=== PATIENT | male | born 1985 | race African-American/Black ===

== ENCOUNTER 2017-03-22 16:57 | Emergency (ER) | payer OTHER ==
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
--- NOTE | ~2017-03-22 | EKG ---
PATIENT: JOVANA GUSTAFSON UNIT #: [id number] Ventricular Rate: 50 BPM Atrial Rate: 50 BPM P-R Interval: 176 ms QRS Duration: 88 ms Q-T Interval: 428 ms QTC Calculation(Bezet): 390 ms P [place]: 61 degrees Calculated R [place]: 51 degrees Calculated T [place]: 22 degrees Diagnosis Line: Sinus bradycardia Diagnosis Line: Possible Left atrial enlargement Diagnosis Line: Borderline ECG Diagnosis Line: No previous ECGs available Diagnosis Line: Confirmed by ANGELA SANTOYO MD ([id number]) on Diagnosis Line: 03/23/2017 2:00:05 PM INTERPRETING MD: YARELIS PAGAN
== END 2017-03-22 19:00 | disposition home or self-care (01) ==
LOC: CFTX 16:57 → CED 16:57 → CFTX 18:38
DX: S13.4XXA Sprain of ligaments of cervical spine, initial encounter (principal); R00.1 Bradycardia, unspecified; W22.8XXA Striking against or struck by other objects, initial encounter; Y92.009 Unspecified place in unspecified non-institutional (private) residence as the place of occurrence of the external cause
CPT/HCPCS: 72040; 93005; 99283